=== PATIENT | male | born 1965 | race Caucasian/White ===

== ENCOUNTER 2018-08-17 12:35 | Emergency (ER) | payer OTHER ==
--- NOTE | 2018-08-17 12:46 | PDOC ---
History of Present Illness - General Chief Complaint: Respiratory Stated Complaint: BREATHING PROBLEM Time Seen by Provider: 08/17/18 12:44 History Source: Patient Exam Limitations: No Limitations - History of Present Illness Initial Comments: 08/17/18 13:22 52 yo M presenting with 2-3 weeks of shortness of breath which is worse when laying down Nothing makes it better or worse No recent illness (thought he has had sick contacts) Pt also reports chest pressure which is to the right of the sternum and radiates to the back no cough, no sputum production No fevers, chills No headaches, weakness No nausea, vomiting, diarrhea Saw Dr Singh this week, work up includes BNP which was 30 PMH: HTN, Angina, Asthma PSH: Meds: ALL: NKDA Social: remote tobacco use (quit 8 years ago) ROS GENERAL/CONSTITUTIONAL: No: fever, chills, weakness HEAD, EYES, EARS, NOSE AND THROAT: No: change in vision, ear pain, discharge, sore throat, throat swelling. CARDIOVASCULAR: Yes: chest pressure No: lightheadedness, palpitations, syncope RESPIRATORY: Yes: shortness of breath No: cough, wheezing, hemoptysis, stridor. GASTROINTESTINAL: No: nausea, vomiting, diarrhea, abdominal pain GENITOURINARY: No: dysuria, hematuria, frequency, urgency, flank pain. MUSCULOSKELETAL: No: back pain, neck pain, joint pain, muscle swelling or pain SKIN: No: lesions, pallor, rash or easy bruising. NEUROLOGIC: No: headache, vertigo, paresthesias, weakness ENDOCRINE: No: unexplained weight gain or loss HEMATOLOGIC/LYMPHATIC: No: anemia, easy bleeding, swelling nodes. PE GENERAL: The patient is in no acute distress. HEAD: Normal EYES: PERRLA, EOMI, sclera anicteric, conjunctiva clear. ENT: Ears normal, nares patent, oropharynx clear without exudates. Moist mucous membranes. NECK: Normal range of motion, supple without lymphadenopathy LUNGS: Breath sounds equal, clear to auscultation bilaterally. No wheezes, and no crackles. HEART:Regular rate and rhythm, normal S1 and S2 without murmur, rub or gallop. ABDOMEN: Soft, nontender, normoactive bowel sounds. No guarding, no rebound. No masses palpable. EXTREMITIES: Normal range of motion, no edema. NEUROLOGICAL: Cranial nerves II through XII grossly intact. Normal speech. No focal neurological deficits. MUSCULOSKELETAL: Back non-tender to palpation SKIN: Warm, Dry, normal turgor, no rashes or lesions noted. Past History - Past Medical History Allergies/Adverse Reactions: Allergies Allergy/AdvReac Type Severity Reaction Status Date / Time No Known Allergies Allergy Verified 08/17/18 12:43 Home Medications: Ambulatory Orders Albuterol Sulfate Inhaler - [Ventolin Hfa Inhaler -] 2 inh PO Q6H PRN 08/17/18 Diltiazem Cd [Cardizem Cd -] 240 mg PO DAILY 08/17/18 Sodium Chloride [Saline Nasal [place]] 1 spray NS BID PRN 08/17/18 Thyroid,Pork [[place] Thyroid] 30 mg PO DAILY 08/17/18 Cancer: Yes (MELANOMIA) HTN: Yes - Immunization History Td Vaccination: No - Suicide/Smoking/Psychosocial Hx Smoking Status: No Smoking History: Never smoked Number of Cigarettes Smoked Daily: 0 If you are a former smoker, when did you quit?: 5 YS Hx Alcohol Use: Yes Substance Use Type: Alcohol Hx Substance Use Treatment: No ED Treatment Course - LABORATORY CBC & Chemistry Diagram: 08/17/18 13:36 08/17/18 13:36 Medical Decision Making - Medical Decision Making 08/17/18 13:25 Pt presents with shortness of breath and chest tightness no recent URI Differential includes cardiac ischemia, pe, asthma exacerbation, pneumonia, pneumothorax, pleural effusion, costochondritis, pericarditis, GERD. 08/17/18 13:44 Will do labs Will do EKG will do CTA No wheezing to suggest need for nebs Will Re Assess 08/17/18 13:47 Twelve-lead EKG was performed and reviewed by me. There is normal sinus rhythm with a normal rate of 56 bpm. The axis is normal. The intervals are normal. There are no ST or T wave abnormalities. (+) LVH Impression: Normal twelve-lead EKG 08/17/18 14:45 Laboratory Tests 08/17/18 08/17/18 08/17/18 13:36 13:36 13:36 WBC 4.7 Hgb 14.0 Hct 41.9 Plt Count 177 D BUN 14 Creatinine 0.7 Creatine Kinase 142 Troponin I < 0.03 CTA - 08/17/18 16:31 CTA negative for dissection, aneurysm, PE Will discharge to home Follow up with pulmonary (pt already has referral) Clinical Impression: shortness of breath, initial presentation *DC/Admit/Observation/Transfer Diagnosis at time of Disposition: Shortness of breath - Discharge Dispostion Disposition: HOME Condition at time of disposition: Stable Decision to Admit order: No - Referrals Referrals: Hemanth Castillo MD [Primary Care Provider] - Angelo Singh MD [Staff Physician] - - Patient Instructions Printed Discharge Instructions: DI for Shortness of Breath Additional Instructions: Mr. Call Thank you for coming in to the ER today Return to the emergency department immediately with ANY new, persistent or worsening symptoms. Continue any medications as previously prescribed by your physician. You should follow up with your Pulmonary doctor as already scheduled . Please make sure your doctor reviews the results of your emergency evaluation. Thank you for coming to the [facility] today for your care. It was a pleasure to see you today. Please note that your evaluation is INCOMPLETE until you follow-up with your doctor. - Post Discharge Activity Forms/Work/School Notes: Back to Work
[2018-08-17 12:52] VITALS: TEMP 97.9; BMI 35.2
[2018-08-17 14:05] LABS: BASO % 0.9 % (0-2.0); EOS % 0.7 % (0-4.5); HEMATOCRIT 41.9 % (35.4-49); LYMPH % 31.3 % (8-40); MCH 31.8 pg (25.7-33.7); MCHC 33.3 g/dl (32.0-35.9); MEAN CELL VOLUME 95.5 fl (80-96); MEAN PLT VOLUME 7.7 fl (7.5-11.1); MONO % 9.9 % (3.8-10.2); NEUT % 57.2 % (42.8-82.8); PLATELET COUNT 177 K/MM3 (134-434); RBC 4.39 M/mm3 (4.00-5.60); RDW 13.1 % (11.9-15.9); WHITE BLOOD COUNT 4.7 K/mm3 (4.0-10.8)
[2018-08-17 14:15] LABS: ALBUMIN 4.3 g/dl (3.4-5.0); ALK PHOS 60 U/L (45-117); ANION GAP 7 MMOL/L (8-16); BLOOD UREA NITROGEN 14 mg/dl (7-18); CALCIUM 8.9 mg/dl (8.5-10); CHLORIDE 105 mmol/L (98-107); CO2 25 mmol/L (21-32); CREATININE 0.7 mg/dl (0.55-1.3); GLUCOSE,RANDOM 103 mg/dl (74-106); POTASSIUM 3.7 mmol/L (3.5-5.1); SGOT/AST 22 U/L (15-37); SGPT/ALT 21 U/L (13-61); SODIUM 137 mmol/L (136-145); TOT PROT 6.8 g/dl (6.4-8.2)
[2018-08-17 16:39] VITALS: BP 146/94; PULSE 62
--- NOTE | 2018-08-18 09:53 | EKG ---
Test Reason : Blood Pressure : / mmHG Vent. Rate : 056 BPM Atrial Rate : 056 BPM P-R Int : 174 ms QRS Dur : 096 ms QT Int : 426 ms P-R-T Axes : 005 -08 006 degrees QTc Int : 411 ms SINUS BRADYCARDIA MINIMAL VOLTAGE CRITERIA FOR LVH, MAY BE NORMAL VARIANT BORDERLINE ECG WHEN COMPARED WITH ECG OF 22-APR-2015 15:25, NO SIGNIFICANT CHANGE WAS FOUND Confirmed by ITZEL RUCKER, MARY ([id number]) on 08/18/2018 9:53:00 AM Referred By: Jose CAIN Confirmed By:MARY ROBBINS MD
== END 2018-08-17 16:41 | disposition home or self-care (01) ==
LOC: FER 12:35
DX: R06.02 Shortness of breath (principal)
CPT/HCPCS: 36415; 71275-TC; 80053; 82550; 84484; 85025; 93005; 99283-25

== ENCOUNTER 2021-07-22 04:18 | Day surgery (SDC) | payer OTHER ==
[2021-07-21 09:23] VITALS: BMI 35.9
[2021-07-22] MEDS ORDERED: OXYMETAZOLINE 0.05% NASAL SOLUTION 15 ML BOTTLE NS ONE ×2 (10:15→11:21)
[2021-07-22] MEDS ORDERED: GLYCOPYRROLATE 0.2 MG/1 ML VIAL ONE (10:26)
[2021-07-22] MEDS ORDERED: GLYCOPYRROLATE 0.2 MG/1 ML VIAL IVPB ONE (10:33)
[2021-07-22] MEDS ORDERED: PROPOFOL 20 ML ONE ×3 (10:53)
[2021-07-22 13:50] VITALS: BP 138/72; PULSE 68; TEMP 98
== END 2021-07-22 13:45 | disposition home or self-care (01) ==
LOC: JASU-SURG 04:18
PROVIDERS: ATTEND Otolaryngology
PROC: 09JK8ZZ Inspection of Nasal Mucosa and Soft Tissue, Via Natural or Artificial Opening Endoscopic (ICD-10-PCS; principal; 2021-07-22 10:30)
DX: G47.33 Obstructive sleep apnea (adult) (pediatric) (principal)
CPT/HCPCS: 94760

== ENCOUNTER 2021-10-03 19:37 | Emergency (ER) | payer OTHER ==
[2021-10-03 19:50] VITALS: BP 150/88; PULSE 88; TEMP 97.8; BMI 35.9
[2021-10-03] MEDS ORDERED: KETOROLAC TROMETHAMINE 60 MG/2 ML VIAL IM ONE (21:33)
[2021-10-03] MEDS ORDERED: KETOROLAC TROMETHAMINE 60 MG/2 ML VIAL ONE (21:37)
== END 2021-10-03 22:10 | disposition home or self-care (01) ==
LOC: FER 19:37
PROC: 3E023GC Introduction of Other Therapeutic Substance into Muscle, Percutaneous Approach (ICD-10-PCS; principal; 2021-10-03)
DX: S33.5XXA Sprain of ligaments of lumbar spine, initial encounter (principal); Y99.8 Other external cause status
CPT/HCPCS: 72100-TC-FY; 99284-25